=== PATIENT | female | born 1980 | race Caucasian/White ===

== ENCOUNTER 2023-09-17 07:30 | Outpatient (CLI) | payer BC | END 2023-09-17 07:31 | disposition home or self-care (01) | LOC: CSHCT 07:30 | PROVIDERS: ATTEND Family Medicine | DX: Z86.79 Personal history of other diseases of the circulatory system (principal); R93.89 Abnormal findings on diagnostic imaging of other specified body structures | CPT/HCPCS: 71270 ==

== ENCOUNTER 2024-03-15 09:38 | Outpatient (CLI) | payer BC ==
[2024-03-15] MEDS ORDERED: Magnevist 469MG/ML 20 ML VIAL ONE (10:20)
== END 2024-03-15 09:39 | disposition home or self-care (01) ==
LOC: CSHMRI 09:38
PROVIDERS: ATTEND Orthopaedic Surgery
DX: D18.01 Hemangioma of skin and subcutaneous tissue (principal)